=== PATIENT | male | born 1960 | race Two or more races ===

== ENCOUNTER 2022-02-17 10:52 | Emergency (ER) | payer OTHER ==
[~2022-02-17] VITALS: Ht 172.7 cm; Wt 97.5 kg
[2022-02-17] MEDS ORDERED: LIPITOR20 MG PO (11:38)
[2022-02-17] MEDS ORDERED: COZAAR25 MG (11:38)
== END 2022-02-17 13:09 | disposition home or self-care (01) ==
LOC: EDSEX 10:52 → ER 10:52
DX: T78.40XA Allergy, unspecified, initial encounter (principal); X58.XXXA Exposure to other specified factors, initial encounter; I10 Essential (primary) hypertension

== ENCOUNTER → 2022-02-28 | Emergency (ER) | payer OTHER ==
[~2022-02-28] VITALS: Ht 170.2 cm; Wt 97.5 kg
[~2022-02-28] MED LIST: COZAAR25 MG; LIPITOR20 MG PO; MUPIROCIN1 G1 TOP
== END | disposition home or self-care (01) ==
LOC: ER 14:17
DX: S99.821A Other specified injuries of right foot, initial encounter (principal); W31.89XA Contact with other specified machinery, initial encounter; I10 Essential (primary) hypertension